=== PATIENT | female | born 1960 | race Caucasian/White ===

== ENCOUNTER 2017-05-11 09:48 | Outpatient (CLI) | payer SELFPAY ==
[2017-05-11] MEDS ORDERED: IOPAMIDOL-300 100 ML VIAL ONE (10:07)
[2017-05-11] MEDS ORDERED: METOPROLOL 5 MG/5 ML VIAL IVP ONE (10:22)
[2017-05-11] MEDS ORDERED: IVABRADINE 7.5 MG PO ONE (10:22)
--- NOTE | 2017-05-11 16:30 | CT Report ---
EXAM: CORONARY ARTERY CTA EXAM DATE: 05/11/2017 11:56 AM. CLINICAL HISTORY: Screening (volunteer). COMPARISON: None. TECHNIQUE: Axial sections were obtained through the heart following the intravenous administration of 80 mL of Isovue-300. 3D reconstructions were obtained. In accordance with CT protocol optimization, one or more of the following dose reduction techniques w ere utilized for this exam: automated exposure control, adjustment of mA and/or KV based on patient s ize, or use of iterative reconstructive technique. FINDINGS: CALCIUM SCORE: The LMA equals 0. The LAD equals 0. The left circumflex equals 0. The RCA equals 0. Th e total calcium score is 0. DOMINANT ARTERY: Dominant right coronary artery. LEFT MAIN: Moderate caliber vessel which arises in anatomic in origin from the left corner sinus and gives rise to the left anterior descending and left circumflex coronary arteries. Detail is limited d ue to motion. No atheromatous disease. No stenosis. LEFT ANTERIOR DESCENDING: Moderate caliber vessel which arises anatomic in origin from the left main coronary artery and gives rise to small caliber first and second diagonal branches and then extends o ciarra the left ventricular apex. A portion of the proximal left anterior descending and distal left ant erior descending are somewhat limited in detail due to motion. Otherwise, no evidence for atheromatou s disease. LEFT CIRCUMFLEX: Small-caliber vessel which arises anatomic in origin from the left main coronary art maria elena and gives rise to a small caliber first obtuse marginal branch, and appears to terminate along ei ther the first obtuse marginal branch or possibly a very small second obtuse marginal branch. Due to small caliber , detail is limited. No occlusion. RIGHT CORONARY ARTERY: Moderate caliber vessel which arises anatomic in origin from the right coronar y sinus and gives rise to acute marginal branches and the posterior descending coronary and left vent ricular branches. Proximal right coronary artery is somewhat limited in detail due to motion. Remaind er of the right coronary artery is well-visualized without evidence for atheromatous disease. No sten osis or occlusion. Cardiac morphology: Heart size is normal. Appropriate right and left pulmonary veins enter the left a trium. No evidence for left atrial appendage thrombus. THORACIC AORTA: The sinuses of Valsalva measure 2.9 cm. The sinotubular junction measures 2.4 cm. The proximal ascending thoracic aorta measures 2.6 cm. No aneurysm. No dissection. No atheromatous disea se. Descending thoracic aorta measures up to 2.2 cm. No aneurysm. LEFT ATRIAL APPENDAGE: None. PULMONARY ARTERIES: Adequate opacifications of portions of the pulmonary arteries without embolus. Ma ximal size of mid main pulmonary measures 23 mm. CHEST/UPPER ABDOMEN: Trace pericardial effusion. Small hiatal hernia. No enlarged mediastinal or ruddy r lymph nodes. No endobronchial obstruction. No visualized consolidation. Included portions of the liver and spleen are unremarkable. Mild degenerative changes of the thoracic spine. Bilateral breast implants are noted. IMPRESSION: 1. Dominant right coronary artery. 2. No evidence of coronary artery disease noting that segments of the proximal left anterior descendi ng and proximal right coronary artery are limited in detail due to motion. Small-caliber left circumf gabby coronary artery limits detail. 3. Calcium score of 0. DANNY Referring Provider Line: [phone] SITE ID: [id number]
[2017-05-11] MEDS ORDERED: IOPAMIDOL-300 100 ML VIAL IVP ONE (16:49)
== END 2017-05-11 17:10 ==
LOC: DI 09:48 → OBS 09:49 → DI 17:10
PROVIDERS: ATTEND Radiology Diagnostic Radiology
DX: Z13.6 Encounter for screening for cardiovascular disorders (principal)
CPT/HCPCS: 71275

== ENCOUNTER 2017-07-14 07:43 | Outpatient (CLI) | payer OTHER ==
[2017-07-14 08:17] LABS: BASOPHILS # (AUTO) 0.1 10^3/uL (0.0-0.1); BASOPHILS % (AUTO) 1.6 %; EOSINOPHILS % (AUTO) 0.7 %; HGB - HEMOGLOBIN 13.5 g/dL (12.0-16.0); LYMPHOCYTES # (AUTO) 1.8 10^3/uL (1.5-3.5); LYMPHOCYTES % (AUTO) 28.9 %; MEAN CORPUSCULAR HEMOGLOBIN 26.3 pg (27.0-31.0); MEAN CORPUSCULAR HGB CONC 32.3 g/dL (32.0-36.0); MEAN CORPUSCULAR VOLUME 81.3 fL (81.0-99.0); MEAN PLATELET VOLUME 8.1 fL (7.9-10.8); MONOCYTES # (AUTO) 0.3 10^3/uL (0.0-1.0); MONOCYTES % (AUTO) 4.8 %; NEUTROPHILS # (AUTO) 3.9 10^3/uL (1.5-6.6); PLT - PLATELET COUNT 211 10^3/uL (130-450); RED BLOOD COUNT 5.14 10^6/uL (4.20-5.40); RED CELL DISTRIBUTION WIDTH 14.8 % (12.0-15.0); WHITE BLOOD COUNT 6.1 x10^3/uL (4.8-10.8)
[2017-07-14 08:22] LABS: CHOL/HDL RATIO 3.8 (<4.4); CHOLESTEROL 254 mg/dL; HDL CHOLESTEROL 67 mg/dL; LDL CHOLESTEROL,CALCULATED 167 mg/dL; LDL/HDL RATIO 2.5 (<4.4); VLDL CHOLESTEROL 20 mg/dL
[2017-07-14 15:25] LABS: ALBUMIN/GLOBULIN RATIO 1.2 (1.0-2.2); ALKALINE PHOSPHATASE 57 IU/L (42-121); ALT ALANINE AMINOTRANSFERASE 25 IU/L (10-60); AST ASPARTATE AMINOTRANSFERASE 22 IU/L (10-42); BILIRUBIN,TOTAL 0.3 mg/dL (0.2-1.0); BUN - BLOOD UREA NITROGEN 23 mg/dL (6-20); CALCIUM 9.2 mg/dL (8.5-10.3); CARBON DIOXIDE - CO2 26 mmol/L (21-32); CHLORIDE 108 mmol/L (101-111); CREATININE 0.7 mg/dL (0.4-1.0); GFR - MDRD 86 (>89); GLUCOSE 102 mg/dL (70-100); SODIUM 140 mmol/L (135-145); TOTAL PROTEIN 7.3 g/dL (6.7-8.2)
== END 2017-07-14 07:44 | disposition home or self-care (01) ==
LOC: LAB 07:43
PROVIDERS: ATTEND Physician Assistant Medical
DX: Z00.00 Encounter for general adult medical examination without abnormal findings (principal)
CPT/HCPCS: 36415; 80053; 80061; 83721; 84443; 85025

== ENCOUNTER 2017-12-30 07:44 | Outpatient (CLI) | payer OTHER ==
[2017-12-30 10:17] LABS: ALBUMIN 3.7 g/dL (3.2-5.5); ALKALINE PHOSPHATASE 65 IU/L (42-121); ALT ALANINE AMINOTRANSFERASE 17 IU/L (10-60); AST ASPARTATE AMINOTRANSFERASE 20 IU/L (10-42); BILIRUBIN,TOTAL 0.4 mg/dL (0.2-1.0); BUN - BLOOD UREA NITROGEN 24 mg/dL (6-20); CARBON DIOXIDE - CO2 27 mmol/L (21-32); CHLORIDE 103 mmol/L (101-111); CHOL/HDL RATIO 2.8 (<4.4); CHOLESTEROL 221 mg/dL; CREATININE 0.6 mg/dL (0.4-1.0); GFR - MDRD 102 (>89); GLUCOSE 101 mg/dL (70-100); HDL CHOLESTEROL 78 mg/dL; LDL CHOLESTEROL,CALCULATED 127 mg/dL; LDL/HDL RATIO 1.6 (<4.4); SODIUM 138 mmol/L (135-145); TOTAL PROTEIN 7.4 g/dL (6.7-8.2); VLDL CHOLESTEROL 16 mg/dL
== END 2017-12-30 07:45 | disposition home or self-care (01) ==
LOC: LAB 07:44
PROVIDERS: ATTEND Physician Assistant Medical
DX: E78.5 Hyperlipidemia, unspecified (principal)
CPT/HCPCS: 36415; 80053; 80061; 83721

== ENCOUNTER 2018-07-24 08:29 | Outpatient (CLI) | payer BC ==
--- NOTE | 2018-07-24 10:17 | Ultrasound Report ---
Reason: VENOUS INSUFFICIENCY,FRACTURE OF UNSPECIFIED CARPA Procedure Date: 07/24/2018 Accession Number: [id number] / [id number] Procedure: US - Duplex Ext Veins Left CPT Code: FULL RESULT: EXAM: BILATERAL UPPER EXTREMITY VENOUS ULTRASOUND EXAM DATE: 07/24/2018 09:32 AM. CLINICAL HISTORY: Left arm venous insufficiency status post fracture of carpal bone. COMPARISON: None. TECHNIQUE: Real-time sonographic vascular imaging was performed by the plumber and tinner through the upper extremities utilizing both color-flow and Doppler spectral analysis. Multiple nutrition representative static images were saved for review. FINDINGS: Right: Internal Jugular Vein (IJV): Normal. Subclavian Vein (SCV): Normal. Axillary Vein: Normal. Cephalic Vein (superficial vein): Normal. Basilic Vein (superficial vein): Normal. Brachial Vein: Normal. Left: Internal Jugular Vein (IJV): Normal. Subclavian Vein (SCV): Normal. Axillary Vein: Normal. Cephalic Vein (superficial vein): Normal. Basilic Vein (superficial vein): Normal. Brachial Vein: Normal. Other: None. IMPRESSION: No evidence for deep vein thrombosis. RADIA
== END 2018-07-24 08:30 | disposition home or self-care (01) ==
LOC: DI 08:29
PROVIDERS: ATTEND Orthopaedic Surgery
DX: I87.2 Venous insufficiency (chronic) (peripheral) (principal); S62.109 Fracture of unspecified carpal bone, unspecified wrist

== ENCOUNTER 2018-07-25 11:00 | Outpatient (CLI) | payer BC ==
--- NOTE | 2018-07-26 09:07 | Mammography Report ---
Reason: SCREENING MAMMO Procedure Date: 07/25/2018 Accession Number: [id number] / [id number] Procedure: YEVGENIY - Screening Mammo Impl w/John CPT Code: FULL RESULT: EXAM: Screening Mammo Impl w/John DATE: 07/25/2018 11:44 AM CLINICAL HISTORY: Screening encounter. 20 year history of hormone therapy. TECHNIQUE: (B) - Bilateral CC and MLO views were obtained. All views are obtained in implant displaced and standard technique. COMPARISON: 03/08/2016 through 03/04/2014. PARENCHYMAL PATTERN: (A) - The breast(s) demonstrate(s) scattered fibroglandular densities. FINDINGS: There are bilateral saline type implants which appear intact. There are no suspicious masses, calcifications, or areas of distortion. IMPRESSION: Benign findings. BI-RADS category 2. RECOMMENDATION: (ANNUAL) - Recommend routine annual screening mammography. BI-RADS CATEGORY: (2) - Benign Findings. STANDARD QUALIFYING STATEMENTS: 1. This examination was not reviewed with the aid of Computer-Aided Detection (CAD). 2. A negative or benign imaging report should not preclude biopsy if clinically suspicious findings are present. 3. Dense breasts may obscure an underlying neoplasm. 4. This examination was reviewed with the aid of 3D breast imaging (tomosynthesis).
== END 2018-07-25 11:01 | disposition home or self-care (01) ==
LOC: DI 11:00
DX: Z12.31 Encounter for screening mammogram for malignant neoplasm of breast (principal); Z98.82 Breast implant status
CPT/HCPCS: 77063; 77067

== ENCOUNTER 2018-08-11 09:02 | Outpatient (CLI) | payer BC ==
[2018-08-11 09:19] LABS: BASOPHILS % (AUTO) 0.6 %; EOSINOPHILS % (AUTO) 0.1 %; LYMPHOCYTES # (AUTO) 1.7 10^3/uL (1.5-3.5); LYMPHOCYTES % (AUTO) 30.9 %; MEAN CORPUSCULAR HEMOGLOBIN 26.5 pg (27.0-31.0); MEAN CORPUSCULAR VOLUME 80.3 fL (81.0-99.0); MEAN PLATELET VOLUME 7.7 fL (7.9-10.8); MONOCYTES # (AUTO) 0.4 10^3/uL (0.0-1.0); MONOCYTES % (AUTO) 7.3 %; NEUTROPHILS # (AUTO) 3.3 10^3/uL (1.5-6.6); NEUTROPHILS % (AUTO) 61.1 %; PLT - PLATELET COUNT 234 10^3/uL (130-450); RED BLOOD COUNT 5.66 10^6/uL (4.20-5.40); RED CELL DISTRIBUTION WIDTH 14.3 % (12.0-15.0); WHITE BLOOD COUNT 5.4 x10^3/uL (4.8-10.8)
[2018-08-11 09:44] LABS: ALBUMIN 3.9 g/dL (3.2-5.5); ALBUMIN/GLOBULIN RATIO 0.9 (1.0-2.2); ALKALINE PHOSPHATASE 69 IU/L (42-121); ALT ALANINE AMINOTRANSFERASE 31 IU/L (10-60); AST ASPARTATE AMINOTRANSFERASE 28 IU/L (10-42); BILIRUBIN,TOTAL 0.6 mg/dL (0.2-1.0); BUN - BLOOD UREA NITROGEN 22 mg/dL (6-20); CALCIUM 9.3 mg/dL (8.5-10.3); CARBON DIOXIDE - CO2 26 mmol/L (21-32); CHLORIDE 102 mmol/L (101-111); CHOL/HDL RATIO 3.4 (<4.4); CHOLESTEROL 217 mg/dL; CREATININE 0.8 mg/dL (0.4-1.0); GFR - MDRD 73 (>89); GLUCOSE 121 mg/dL (70-100); HDL CHOLESTEROL 63 mg/dL; LDL CHOLESTEROL,CALCULATED 136 mg/dL; LDL/HDL RATIO 2.2 (<4.4); SODIUM 140 mmol/L (135-145); TOTAL PROTEIN 8.1 g/dL (6.7-8.2); VLDL CHOLESTEROL 18 mg/dL
== END 2018-08-11 09:03 | disposition home or self-care (01) ==
LOC: LAB 09:02
PROVIDERS: ATTEND Physician Assistant Medical
DX: Z00.00 Encounter for general adult medical examination without abnormal findings (principal); E78.5 Hyperlipidemia, unspecified; E03.9 Hypothyroidism, unspecified
CPT/HCPCS: 36415; 80053; 80061; 83721; 84443; 85025

== ENCOUNTER 2019-02-27 08:47 | Outpatient (CLI) | payer BC ==
[2019-02-27 09:27] LABS: ALBUMIN 3.6 g/dL (3.2-5.5); ALBUMIN/GLOBULIN RATIO 0.9 (1.0-2.2); ALKALINE PHOSPHATASE 62 IU/L (42-121); ALT ALANINE AMINOTRANSFERASE 20 IU/L (10-60); AST ASPARTATE AMINOTRANSFERASE 17 IU/L (10-42); BILIRUBIN,TOTAL 0.6 mg/dL (0.2-1.0); BUN - BLOOD UREA NITROGEN 23 mg/dL (6-20); CALCIUM 9.4 mg/dL (8.5-10.3); CARBON DIOXIDE - CO2 29 mmol/L (21-32); CHLORIDE 103 mmol/L (101-111); CHOL/HDL RATIO 3.2 (<4.4); CHOLESTEROL 247 mg/dL; CREATININE 0.7 mg/dL (0.4-1.0); GFR - MDRD 85 (>89); GLUCOSE 96 mg/dL (70-100); HDL CHOLESTEROL 78 mg/dL; LDL CHOLESTEROL,CALCULATED 139 mg/dL; LDL/HDL RATIO 1.8 (<4.4); SODIUM 141 mmol/L (135-145); TOTAL PROTEIN 7.6 g/dL (6.7-8.2); VLDL CHOLESTEROL 30 mg/dL
[2019-02-27 09:44] LABS: HB2 TOTAL 13.9 g/dL; HEMOGLOBIN A1C 0.6 g/dL; HEMOGLOBIN A1C % 6.1 % (4.6-6.2)
== END 2019-02-27 08:48 | disposition home or self-care (01) ==
LOC: LAB 08:47
PROVIDERS: ATTEND Physician Assistant Medical
DX: E78.5 Hyperlipidemia, unspecified (principal); R73.9 Hyperglycemia, unspecified; E03.9 Hypothyroidism, unspecified
CPT/HCPCS: 36415; 80053; 80061; 83036; 83721; 84443

== ENCOUNTER 2019-08-30 07:32 | Outpatient (CLI) | payer BC ==
--- NOTE | 2019-08-30 08:57 | XRAY Report ---
Reason: SHOULDER IMPINGEMENT SYN, ELBOW PAIN, CTS, LEFT Procedure Date: 08/30/2019 Accession Number: [id number] / [id number] Procedure: XR - Shoulder 2 View LT CPT Code: Final Report FULL RESULT: PROCEDURE: Shoulder 2 View LT INDICATIONS: SHOULDER IMPINGEMENT SYN, ELBOW PAIN, CTS, LEFT TECHNIQUE: 2 views of the shoulder were acquired. COMPARISON: None. FINDINGS: Bones: No fractures or dislocations. No suspicious bony lesions. Visualized ribs appear intact. Mild periarticular osteophyte formation at the acromioclavicular and glenohumeral joints. Soft tissues: No suspicious soft tissue calcifications. IMPRESSION: Osteoarthritis. No acute fracture. No osseous lesion. If symptoms and/or clinical suspicion for pathology continue, further assessment with repeat plain films, or advanced imaging (e.g., CT, MRI, or bone scan) is recommended for further assessment. Reviewed by: Monserrat Steele MD on 08/30/2019 8:56 AM PDT Approved by: Monserrat Steele MD on 08/30/2019 8:56 AM PDT Station ID: [id number]
--- NOTE | 2019-08-30 08:58 | XRAY Report ---
Reason: SHOULDER IMPINGEMENT SYN, ELBOW PAIN, CTS, LEFT Procedure Date: 08/30/2019 Accession Number: [id number] / [id number] Procedure: XR - Elbow 2 View LT CPT Code: Final Report FULL RESULT: PROCEDURE: Elbow 2 View LT INDICATIONS: SHOULDER IMPINGEMENT SYN, ELBOW PAIN, CTS, LEFT TECHNIQUE: 2 views of the elbow were acquired. COMPARISON: None FINDINGS: Bones: No fractures or dislocations. No suspicious bony lesions. Mild periarticular osteophyte formation. Soft tissues: No elbow joint effusion. No suspicious soft tissue calcifications. IMPRESSION: Osteoarthritis. No acute fracture. No osseous lesion. If symptoms and/or clinical suspicion for pathology continue, further assessment with repeat plain films, or advanced imaging (e.g., CT, MRI, or bone scan) is recommended for further assessment. Reviewed by: Monserrat Steele MD on 08/30/2019 8:56 AM PDT Approved by: Monserrat Steele MD on 08/30/2019 8:56 AM PDT Station ID: [id number]
--- NOTE | 2019-08-30 09:03 | XRAY Report ---
Reason: SHOULDER IMPINGEMENT SYN, ELBOW PAIN, CTS, LEFT Procedure Date: 08/30/2019 Accession Number: [id number] / [id number] Procedure: XR - Wrist 4 View LT CPT Code: Final Report FULL RESULT: PROCEDURE: Wrist 4 View LT INDICATIONS: SHOULDER IMPINGEMENT SYN, ELBOW PAIN, CTS, LEFT TECHNIQUE: views of the wrist were acquired. COMPARISON: FINDINGS: Bones: There is a subacute or chronic appearing fracture of the scaphoid waist, which is mildly displaced. Scaphoid view: Scaphoid waist fracture. Mild relative sclerosis within the proximal scaphoid. Soft tissues: No suspicious soft tissue calcifications. IMPRESSION: 1. Subacute versus chronic appearing scaphoid waist fracture. 2. Relative sclerosis within the proximal scaphoid, possibly indicating avascular necrosis. Further assessment with noncontrast wrist MRI is recommended. Reviewed by: Monserrat Steele MD on 08/30/2019 9:01 AM PDT Approved by: Monserrat Steele MD on 08/30/2019 9:01 AM PDT Station ID: [id number]
== END 2019-08-30 07:33 | disposition home or self-care (01) ==
LOC: DI 07:32
PROVIDERS: ATTEND Physician Assistant Medical
DX: S62.102A Fracture of unspecified carpal bone, left wrist, initial encounter for closed fracture (principal); M25.832 Other specified joint disorders, left wrist; M19.012 Primary osteoarthritis, left shoulder; M19.022 Primary osteoarthritis, left elbow

== ENCOUNTER 2019-09-17 07:19 | Outpatient (CLI) | payer BC ==
--- NOTE | 2019-09-17 09:34 | MRI Report ---
PROCEDURE: Wrist LT W/O INDICATIONS: LT WRIST PAIN TECHNIQUE: Noncontrast coronal proton density fast spin echo and T2 fast spin echo with fat saturation; coronal 3-D gradient echo, axial T1 spin echo and T2 fast spin echo with fat saturation, sagittal T1 spin ech o through the wrist. COMPARISON: Wrist radiograph dated 08/30/2019. FINDINGS: Image quality: Degraded by motion artifact. Bones and cartilage: Scaphoid waist and distal pole fracture is again noted. There is mild marrow ed yanely although probably subacute or chronic appearance as described radiographically on the prior study . No definite avascular necrosis identified within the proximal pole of the scaphoid or lunate. Additio nal mild probable degenerative cystic change seen at the distal articular surface of the lunate. No e vidence of articular surface collapse. First CMC and triscaphe joint degeneration. Carpal ligaments: The scapholunate and lunotriquetral ligaments appear intact. In the absence of in tra-articular contrast, the extrinsic carpal ligaments are not well identified. On sagittal images, the pisohamate ligament appears intact. Triangular fibrocartilage complex: The triangular fibrocartilage appears intact. The adjacent menis syed homolog appears normal in the absence of intra-articular contrast. The extensor carpi ulnaris te ndon is normal in location and morphology. Tendons and soft tissues: The carpal tunnel structures appear normal, including the median nerve. T he ulnar nerve appears normal within Guyon?s canal. There is minimal fluid adjacent to the extensor c arpi radialis longus and brevis tendons suggestive of low-grade tenosynovitis. There is also mild fluid adjacent to the flexor carpi radialis in keeping with low-grade tenosynoviti s. There is mild T2 hyperintensity surrounding the flexor tendons diffusely Ganglion cyst along the volar/ulnar aspect of the wrist joint capsule measuring 0.6 x 0.5 x 0.8 cm pr obably ganglion cyst. IMPRESSION: Redemonstration of scaphoid waist and distal pole fracture, with MR appearance suggestive of subacute or chronic age. No evidence of avascular necrosis involving the proximal pole of scaphoid or lunate. If there is pers istent clinical suspicion, recommend surveillance with short interval radiographic studies. Mild extensor carpi radialis longus and brevis, and flexor carpi radialis tenosynovitis. Minimal diffuse T2 hyperintensity surrounding the flexor tendons raising possibility of early carpal tunnel syndrome, however technically indeterminate and this remains a clinical diagnosis. 0.8 cm presumed ganglion cyst along the ulnar aspect of the wrist joint capsule. Reviewed by: Nael Ramachandran MD on 09/17/2019 9:33 AM PDT Approved by: Nael Ramachandran MD on 09/17/2019 9:33 AM PDT Station ID: [id number]
== END 2019-09-17 07:20 | disposition home or self-care (01) ==
LOC: DI 07:19
PROVIDERS: ATTEND Physician Assistant Medical
DX: S62.012A Displaced fracture of distal pole of navicular [scaphoid] bone of left wrist, initial encounter for closed fracture (principal)

== ENCOUNTER 2020-01-30 15:33 | Outpatient (CLI) | payer BC ==
--- NOTE | 2020-01-31 13:22 | Mammography Report ---
BILATERAL DIGITAL SCREENING MAMMOGRAM 3D/2D WITH AUGMENTATION: 01/30/2020 CLINICAL: Routine screening. Comparison is made to exams dated: 07/25/2018 mammogram and 03/08/2016 mammogram - [facility]. The tissue of both breasts is heterogeneously dense. This may lower the sensitivity of ma mmography. Bilateral breast implants are stable. No significant masses, calcifications, or other findings are seen in either breast. There has been no significant interval change. IMPRESSION: NEGATIVE There is no mammographic evidence of malignancy. A 1 year screening mammogram is recommended. This exam was interpreted at Station ID: [id number]. NOTE: For mammograms, a report in lay terms will be sent to the patient. Approximately 15% of breast malignancies will not be visualized mammographically. In the management of a palpable breast mass, a negative mammogram must not discourage biopsy of a clinically suspicious lesion. Electronically Signed By: Stoney berrios/patrick:01/30/2020 16:31:48 ACR BI-RADS Category 1: Negative 3341F PARENCHYMAL PATTERN: (D) - The breast(s) demonstrate(s) heterogeneously dense fibroglandular parenchy ma. BI-RADS CATEGORY: (1) - 1 RECOMMENDATION: (ANNUAL) - Recommend routine annual screening mammography. [id number] 1 year screening LATERALITY: (B)
== END 2020-01-30 15:34 | disposition home or self-care (01) ==
LOC: DI 15:33
DX: Z12.31 Encounter for screening mammogram for malignant neoplasm of breast (principal); Z98.82 Breast implant status
CPT/HCPCS: 77067

== ENCOUNTER 2020-04-17 08:09 | Outpatient (CLI) | payer BC ==
[2020-04-17 12:08] LABS: BASOPHILS # (AUTO) 0.1 10^3/uL (0.0-0.1); BASOPHILS % (AUTO) 0.9 %; EOSINOPHILS # (AUTO) 0.1 10^3/uL (0.0-0.7); EOSINOPHILS % (AUTO) 1.2 %; HGB - HEMOGLOBIN 13.2 g/dL (12.0-16.0); LYMPHOCYTES # (AUTO) 1.9 10^3/uL (1.5-3.5); LYMPHOCYTES % (AUTO) 33.1 %; MEAN CORPUSCULAR HEMOGLOBIN 25.7 pg (27.0-31.0); MEAN CORPUSCULAR HGB CONC 31.1 g/dL (32.0-36.0); MEAN CORPUSCULAR VOLUME 82.8 fL (81.0-99.0); MEAN PLATELET VOLUME 10.1 fL (7.9-10.8); MONOCYTES # (AUTO) 0.4 10^3/uL (0.0-1.0); MONOCYTES % (AUTO) 6.1 %; NEUTROPHILS # (AUTO) 3.4 10^3/uL (1.5-6.6); NEUTROPHILS % (AUTO) 58.4 %; PLT - PLATELET COUNT 238 10^3/uL (130-450); RED BLOOD COUNT 5.13 10^6/uL (4.20-5.40); RED CELL DISTRIBUTION WIDTH 14.1 % (12.0-15.0); WHITE BLOOD COUNT 5.8 x10^3/uL (4.8-10.8)
[2020-04-17 12:27] LABS: ALBUMIN 3.5 g/dL (3.2-5.5); ALKALINE PHOSPHATASE 66 IU/L (42-121); ALT ALANINE AMINOTRANSFERASE 19 IU/L (10-60); AST ASPARTATE AMINOTRANSFERASE 17 IU/L (10-42); BILIRUBIN,TOTAL 0.3 mg/dL (0.2-1.0); BUN - BLOOD UREA NITROGEN 15 mg/dL (6-20); CALCIUM 9.4 mg/dL (8.5-10.3); CARBON DIOXIDE - CO2 29 mmol/L (21-32); CHLORIDE 103 mmol/L (101-111); CHOL/HDL RATIO 3.6 (<4.4); CHOLESTEROL 232 mg/dL; CREATININE 0.7 mg/dL (0.4-1.0); GLUCOSE 109 mg/dL (70-100); HDL CHOLESTEROL 65 mg/dL; LDL CHOLESTEROL,CALCULATED 135 mg/dL; LDL/HDL RATIO 2.1 (<4.4); TOTAL PROTEIN 7.1 g/dL (6.7-8.2); VLDL CHOLESTEROL 32 mg/dL
== END 2020-04-17 08:10 | disposition home or self-care (01) ==
LOC: LAB.WCP 08:09
PROVIDERS: ATTEND Physician Assistant Medical
DX: E78.5 Hyperlipidemia, unspecified (principal); E03.9 Hypothyroidism, unspecified; K21.9 Gastro-esophageal reflux disease without esophagitis
CPT/HCPCS: 36415; 80053; 80061; 83721; 84443; 85025

== ENCOUNTER 2020-07-17 08:45 | Day surgery (SDC) | payer BC ==
[2020-07-17] MEDS ORDERED: LACTATED RINGERS 1,000 ML IV ONE ×2 (09:17→10:42)
[2020-07-17] MEDS ORDERED: PROPOFOL 1000 MG/100 ML 1,000 MG/100 ML BOTTLE IV ONE (10:01)
[2020-07-17] MEDS ORDERED: ONDANSETRON 4 MG/2 ML VIAL ONE (10:18)
[2020-07-17] MEDS ORDERED: ONDANSETRON 4 MG/2 ML VIAL IVP PRN (10:41)
[2020-07-17] MEDS ORDERED: METOCLOPRAMIDE 10 MG/2 ML VIAL IVP PRN (10:41)
[2020-07-17] MEDS ORDERED: HYDROmorphone 0.5 MG/0.5 ML SYRINGE IVP PRN (10:41)
[2020-07-17] MEDS ORDERED: fentaNYL 100 MCG/2 ML VIAL IVP PRN (10:41)
[2020-07-17] MEDS ORDERED: ATROPINE ABBOJECT 1 MG/10 ML SYRINGE IVP PRN (10:41)
[2020-07-17] MEDS ORDERED: ePHEDrine 50 MG/ML VIAL IVP PRN (10:41)
[2020-07-17] MEDS ORDERED: MORPHINE 2 MG/ML CARPUJECT IVP PRN (10:41)
[2020-07-17] MEDS ORDERED: NALOXONE 0.4 MG/ML VIAL IVP PRN (10:41)
--- NOTE | 2020-07-17 10:41 | ANESTHESIA ---
Pre-Anesthesia VS, & Labs - Diagnosis screening - Procedure colonoscopy Vital Signs: Temp Pulse Resp BP Pulse Ox 36.4 C L 69 20 86/56 L 95 07/17/20 10:35 07/17/20 10:35 07/17/20 10:35 07/17/20 10:35 07/17/20 10:35 Height: 5 ft 7 in Weight (kg): 87.4 kg Body Mass Index: 30.2 BMI Classification: Obese - NPO >8 hours - Is Patient ?: No Home Medications and Allergies Home Medications: Ambulatory Orders Estradiol [Estrace] 1 tab ORAL DAILY 07/17/20 Omeprazole 20 mg PO DAILY 07/17/20 Thyroid,Pork [Nubieber Thyroid] 1 tab ORAL DAILY 07/17/20 Estradiol [Estrace] 1 tab ORAL DAILY 07/17/20 Omeprazole 20 mg PO DAILY 07/17/20 Thyroid,Pork [Nubieber Thyroid] 1 tab ORAL DAILY 07/17/20 Allergies/Adverse Reactions: Allergies Allergy/AdvReac Type Severity Reaction Status Date / Time Sulfa (Sulfonamide Allergy Unknown Unknown Verified 07/17/20 09:18 Antibiotics) Anes History & Medical History - Anesthetic History Anesthesia Complications: reports: Post-Operative Nausea/Vomiting Family history of Anesthesia Complications: Denies Family history of Malignant Hyperthermia: Denies - Medical History Cardiovascular: reports: None, Other Pulmonary: reports: None Gastrointestinal: reports: GERD Urinary: reports: None Musculoskeletal: reports: Other Endocrine/Autoimmune: reports: HyPOthyroidism Skin: reports: None - Surgical History General: reports: Colonoscopy, Other Gynecologic: reports: section, Hysterectomy, Oophrectomy, Other Exam General: Alert, Oriented x3, Cooperative Dental: WNL Mouth Openin Fingerbreadth Neck Mobility: Normal Mallampati classification: II Thyromental Distance: 4-6 cm Respiratory: Lungs clear Cardiovascular: Regular rate Plan Anesthesia Type: Total IV Consent for Procedure(s) Verified and Reviewed: Yes Code Status: Attempt Resuscitation ASA classification: 2-Mild systemic disease Is this case an emergency?: No
[2020-07-17] MEDS ORDERED: LACTATED RINGERS 1,000 ML IV SCH (11:00)
[2020-07-17 11:03] VITALS: BP 104/83
--- NOTE | 2020-07-17 13:36 | ANESTHESIA POST OP EVALUATION ---
Anesthesia Post Eval - Post Anesthesia Eval Vitals: Last Vital Signs Temp 36.0 C L 07/17/20 11:02 Pulse 66 07/17/20 11:02 Resp 16 07/17/20 11:02 BP 104/83 H 07/17/20 11:02 Pulse Ox 97 07/17/20 11:02 CV Function Including HR & BP: Stable Pain Control: Satisfactory Nausea & Vomiting: Negative Mental Status: Baseline Respiratory Status: Airway Patent Hydration Status: Satisfactory Anesthesia Complications: None
== END 2020-07-17 08:46 | disposition home or self-care (01) ==
LOC: SDS 08:45
PROVIDERS: ATTEND Surgery
PROC: 0DBK8ZZ Excision of Ascending Colon, Via Natural or Artificial Opening Endoscopic (ICD-10-PCS; principal; 2020-07-17 09:45)
DX: Z12.11 Encounter for screening for malignant neoplasm of colon (principal); K63.5 Polyp of colon; K57.30 Diverticulosis of large intestine without perforation or abscess without bleeding; K64.4 Residual hemorrhoidal skin tags; K64.8 Other hemorrhoids; Z92.83 Personal history of failed moderate sedation
CPT/HCPCS: 45385; J7120